=== PATIENT | female | born 1945 | race Caucasian/White ===

== ENCOUNTER 2021-05-24 14:34 | Emergency (ER) | payer OTHER, MEDICARE ==
[2021-05-24 15:01] VITALS: BMI 27.6
[2021-05-24 18:47] VITALS: BP 149/57; PULSE 58; TEMP 98.1
== END 2021-05-24 18:47 | disposition home or self-care (01) ==
LOC: JER 14:34
DX: S09.90XA Unspecified injury of head, initial encounter (principal)
CPT/HCPCS: 70450-TC; 99284-25

== ENCOUNTER 2021-12-08 11:27 | Observation (INO) | payer OTHER, MEDICARE ==
[2021-12-08 11:43] VITALS: BMI 28.3
[2021-12-08] MEDS ORDERED: SODIUM CHLORIDE 0.9% 500 ML INFUS.BAG IV ONE (13:49)
[2021-12-08 14:46] LABS: BASO % 1.2 % (0-2.0); EOS % 3.5 % (0-4.5); HEMATOCRIT 37.3 % (32.4-45.2); HEMOGLOBIN 12.6 GM/dL (10.7-15.3); LYMPH % 25.6 % (8-40); MCH 30.5 pg (25.7-33.7); MCHC 33.7 g/dl (32.0-36.0); MEAN CELL VOLUME 90.5 fl (80-96); MEAN PLT VOLUME 7.3 fl (7.5-11.1); MONO % 12.3 % (3.8-10.2); NEUT % 57.4 % (42.8-82.8); PLATELET COUNT 386 10^3/uL (134-434); RBC 4.12 M/mm3 (3.60-5.2); RDW 13.3 % (11.6-15.6); WHITE BLOOD COUNT 9.1 K/mm3 (4.0-10.0)
[2021-12-08 14:57] LABS: CHLORIDE 106 mmol/L (98-107); SODIUM 143 mmol/L (136-145)
[2021-12-08] MEDS ORDERED: diazePAM CARPU-JECT 10 MG/2 ML DISP.SYRIN IVPUSH ONE (14:57)
[2021-12-08] MEDS ORDERED: LORATADINE 10 MG TABLET PO ONE (14:57)
[2021-12-08 14:59] LABS: CALCIUM 9.6 mg/dL (8.5-10.1)
[2021-12-08 15:00] LABS: ALBUMIN 4.3 g/dl (3.4-5.0); ANION GAP 8 MMOL/L (8-16); BLOOD UREA NITROGEN 14.6 mg/dL (7-18); CO2 29 mmol/L (21-32); GLUCOSE,RANDOM 83 mg/dL (74-106)
[2021-12-08 15:01] LABS: INR 1.09 (0.83-1.09); PROTHROMBIN TIME (PATIENT) 12.6 SEC (9.7-13.0)
[2021-12-08 15:02] LABS: ACTIVATED PTT 23.9 SECONDS (25.2-36.5)
[2021-12-08 15:03] LABS: CREATININE 0.6 mg/dL (0.55-1.3); SGOT/AST 20 U/L (15-37); SGPT/ALT 26 U/L (13-61)
[2021-12-08 15:04] LABS: BILIRUBIN,TOTAL 0.3 mg/dL (0.2-1)
[2021-12-08 15:05] LABS: ALK PHOS 83 U/L (45-117); TOT PROT 7.2 g/dl (6.4-8.2)
[2021-12-08] MEDS ORDERED: LORATADINE 10 MG TABLET ONE ×2 (15:20→15:21)
[2021-12-08] MEDS ORDERED: diazePAM CARPU-JECT 10 MG/2 ML DISP.SYRIN ONE (15:20)
[2021-12-08 15:21] LABS: EPI CELLS 17 /uL (0-25.1); HYALINE CASTS 0 /uL (0-3.1); PH,URINE 5.5 (5.0-8.0); URINE APPEARANCE CLEAR; URINE BACTERIA 224 /uL (0-1359); URINE BILIRUBIN NEGATIVE (NEGATIVE); URINE COLOR YELLOW; URINE GLUCOSE (UA) NEGATIVE (NEGATIVE); URINE KETONE NEGATIVE (NEGATIVE); URINE LEUK ESTERASE 1+ (NEGATIVE); URINE NITRITE NEGATIVE (NEGATIVE); URINE PROTEIN NEGATIVE (NEGATIVE); URINE RBC 5 /uL (0-23.9); URINE UROBILINOGEN 0.2 mg/dL (0.2-1.0); URINE WBC 57 /uL (0-25.8)
[2021-12-08] MEDS ORDERED: ACETAMINOPHEN 325 MG TABLET (FP) PO PRN (22:01)
[2021-12-08] MEDS ORDERED: POLYETHYLENE GLYCOL 3350 119 GM BTL PO PRN (22:01)
[2021-12-08] MEDS ORDERED: POLYETHYLENE GLYCOL (HEALTHYLAX) 3350 17 GM PACKET PO PRN (22:13)
[2021-12-08] MEDS ORDERED: ALBUTEROL SO4 HFA INHALER IH PRN (22:38)
[2021-12-09 07:45] LABS: EOS % 3.8 % (0-4.5); HEMATOCRIT 33.2 % (32.4-45.2); HEMOGLOBIN 11.6 GM/dL (10.7-15.3); LYMPH % 17.2 % (8-40); MCH 31.4 pg (25.7-33.7); MEAN CELL VOLUME 89.6 fl (80-96); MEAN PLT VOLUME 7.4 fl (7.5-11.1); PLATELET COUNT 339 10^3/uL (134-434); WHITE BLOOD COUNT 7.9 K/mm3 (4.0-10.0)
[2021-12-09 07:56] LABS: CHLORIDE 110 mmol/L (98-107); SODIUM 144 mmol/L (136-145)
[2021-12-09 08:12] LABS: ANION GAP 8 MMOL/L (8-16); BLOOD UREA NITROGEN 9.2 mg/dL (7-18); CALCIUM 9.2 mg/dL (8.5-10.1); CO2 26 mmol/L (21-32)
[2021-12-09 08:13] LABS: GLUCOSE,RANDOM 110 mg/dL (74-106); MAGNESIUM 2.4 mg/dL (1.8-2.4)
[2021-12-09 08:16] LABS: CREATININE 0.6 mg/dL (0.55-1.3)
[2021-12-09] MEDS ORDERED: QUINAPRIL HCL 20 MG TABLET PO SCH (10:00)
[2021-12-09] MEDS ORDERED: ASPIRIN 81 MG CHEWABLE TABLETS ONE (10:12)
[2021-12-09] MEDS: ASPIRIN 81 MG CHEWABLE TABLETS PO SCH (10:16)
[2021-12-09] MEDS: ENOXAPARIN NA (PORCINE) 40 MG/0.4 ML DISP.SYRIN SQ SCH (11:21)
[2021-12-09] MEDS ORDERED: PANTOPRAZOLE 40 MG TABLET ONE (13:31)
[2021-12-09] MEDS: PANTOPRAZOLE 40 MG TABLET PO SCH (13:35)
[2021-12-09] MEDS ORDERED: ATORVASTATIN CA 20 MG TABLET (FP) ONE (21:36)
[2021-12-09] MEDS ORDERED: ATORVASTATIN CA 20 MG TABLET (FP) PO SCH (22:00)
[2021-12-09] MEDS: QUINAPRIL HCL 20 MG TABLET PO SCH (22:48)
[2021-12-10 08:17] LABS: BASO % 1.4 % (0-2.0); EOS % 5.2 % (0-4.5); HEMOGLOBIN 11.9 GM/dL (10.7-15.3); LYMPH % 20.3 % (8-40); MCH 30.6 pg (25.7-33.7); MCHC 33.9 g/dl (32.0-36.0); MEAN CELL VOLUME 90.1 fl (80-96); MEAN PLT VOLUME 7.4 fl (7.5-11.1); MONO % 11.1 % (3.8-10.2); PLATELET COUNT 360 10^3/uL (134-434); RBC 3.89 M/mm3 (3.60-5.2); RDW 13.2 % (11.6-15.6); WHITE BLOOD COUNT 7.4 K/mm3 (4.0-10.0)
[2021-12-10 08:50] LABS: ALBUMIN 3.7 g/dl (3.4-5.0); BLOOD UREA NITROGEN 13.4 mg/dL (7-18); CALCIUM 9.6 mg/dL (8.5-10.1); MAGNESIUM 2.4 mg/dL (1.8-2.4)
[2021-12-10 08:53] LABS: CREATININE 0.6 mg/dL (0.55-1.3); PHOSPHOROUS 4.1 mg/dL (2.5-4.9)
[2021-12-10 08:54] LABS: TOT PROT 6.6 g/dl (6.4-8.2)
[2021-12-10 08:55] LABS: BILIRUBIN,TOTAL 0.7 mg/dL (0.2-1)
[2021-12-10] MEDS ORDERED: ASPIRIN 81 MG CHEWABLE TABLETS ONE (10:05)
[2021-12-10] MEDS ORDERED: PANTOPRAZOLE 40 MG TABLET ONE (10:05)
[2021-12-10] MEDS ORDERED: ENOXAPARIN NA (PORCINE) 40 MG/0.4 ML DISP.SYRIN SQ ONE (10:06)
[2021-12-10] MEDS: ASPIRIN 81 MG CHEWABLE TABLETS PO SCH (10:16)
[2021-12-10] MEDS: PANTOPRAZOLE 40 MG TABLET PO SCH (10:16)
[2021-12-10] MEDS: QUINAPRIL HCL 20 MG TABLET PO SCH (10:16)
[2021-12-10] MEDS: ENOXAPARIN NA (PORCINE) 40 MG/0.4 ML DISP.SYRIN SQ SCH (10:16)
[2021-12-10 12:20] VITALS: BP 116/55; PULSE 64; TEMP 98.3
== END 2021-12-10 11:47 | disposition home or self-care (01) ==
LOC: JER 11:27 → JERBED 20:20 → INTOOBSV 20:20 → UNDOADMOB 20:20 → JERBED 12-09 13:53
PROVIDERS: ADMIT Hospitalist; ATTEND Internal Medicine
PROC: 3E033GC Introduction of Other Therapeutic Substance into Peripheral Vein, Percutaneous Approach (ICD-10-PCS; principal; 2021-12-09)
PROC: 3E023GC Introduction of Other Therapeutic Substance into Muscle, Percutaneous Approach (ICD-10-PCS; 2021-12-09)
PROC: 3E0337Z Introduction of Electrolytic and Water Balance Substance into Peripheral Vein, Percutaneous Approach (ICD-10-PCS; 2021-12-09)
DX: U07.1 COVID-19 (principal); I10 Essential (primary) hypertension; E78.5 Hyperlipidemia, unspecified; E11.9 Type 2 diabetes mellitus without complications; M35.9 Systemic involvement of connective tissue, unspecified; R79.89 Other specified abnormal findings of blood chemistry; I45.10 Unspecified right bundle-branch block; Z91.81 History of falling; R29.6 Repeated falls; R42 Dizziness and giddiness; R26.81 Unsteadiness on feet; Z88.8 Allergy status to other drugs, medicaments and biological substances; Z88.5 Allergy status to narcotic agent
CPT/HCPCS: 36415; 70450-TC; 71045-TC-FY; 80048; 80053; 81003; 82550; 83735; 84100; 84443; 84484; 85025; 85379; 85610; 85730; 86140; 87804; 93005; 93010; 96372; 96374; 99285-25; C9803; G0378; U0003; U0005

== ENCOUNTER 2024-02-09 11:31 | Inpatient (IN) | payer OTHER, MEDICARE ==
[2024-02-09 11:41] VITALS: BMI 26.6
[2024-02-09 13:33] LABS: INR 1.09 (0.83-1.09); PROTHROMBIN TIME (PATIENT) 12.6 SEC (9.7-13.0)
[2024-02-09 13:34] LABS: EOS % 2.3 % (0-4.5); HEMATOCRIT 37.2 % (32.4-45.2); HEMOGLOBIN 12.5 GM/dL (10.7-15.3); LYMPH % 16.5 % (8-40); MCH 28.7 pg (25.7-33.7); MCHC 33.5 g/dl (32.0-36.0); MEAN CELL VOLUME 85.5 fl (80-96); MEAN PLT VOLUME 7.4 fl (7.5-11.1); MONO % 11.4 % (3.8-10.2); NEUT % 68.8 % (42.8-82.8); PLATELET COUNT 399 10^3/uL (134-434); RBC 4.35 M/mm3 (3.60-5.2); RDW 15.4 % (11.6-15.6); WHITE BLOOD COUNT 9.3 K/mm3 (4.0-10.0)
[2024-02-09 13:53] LABS: POTASSIUM 3.8 mmol/L (3.5-5.1)
[2024-02-09 13:56] LABS: ALBUMIN 3.9 g/dl (3.4-5.0); BLOOD UREA NITROGEN 12.6 mg/dL (7-18); CALCIUM 9.8 mg/dL (8.5-10.1)
[2024-02-09 14:00] LABS: CREATININE 0.7 mg/dL (0.55-1.3); TOT PROT 7.2 g/dl (6.4-8.2)
[2024-02-09 14:02] LABS: BILIRUBIN,TOTAL 0.7 mg/dL (0.2-1)
[2024-02-09] MEDS ORDERED: MECLIZINE HCL 25 MG TABLET (FP) ONE ×2 (14:37→18:13)
[2024-02-09] MEDS: MECLIZINE HCL 25 MG TABLET (FP) PO ONE ×3 (14:41→18:18)
[2024-02-09] MEDS ORDERED: ALBUTEROL SO4 HFA INHALER IH PRN (22:20)
[2024-02-10 07:18] LABS: EOS % 3.8 % (0-4.5); HEMATOCRIT 36.5 % (32.4-45.2); HEMOGLOBIN 12.2 GM/dL (10.7-15.3); LYMPH % 17.5 % (8-40); MCH 28.8 pg (25.7-33.7); MCHC 33.4 g/dl (32.0-36.0); MEAN CELL VOLUME 86.3 fl (80-96); MEAN PLT VOLUME 7.7 fl (7.5-11.1); MONO % 13.6 % (3.8-10.2); NEUT % 64.1 % (42.8-82.8); PLATELET COUNT 372 10^3/uL (134-434); RBC 4.23 M/mm3 (3.60-5.2); RDW 15.3 % (11.6-15.6); WHITE BLOOD COUNT 9.1 K/mm3 (4.0-10.0)
[2024-02-10 07:43] LABS: CALCIUM 9.3 mg/dL (8.5-10.1)
[2024-02-10 07:45] LABS: BLOOD UREA NITROGEN 10.6 mg/dL (7-18)
[2024-02-10 07:48] LABS: CREATININE 0.6 mg/dL (0.55-1.3)
[2024-02-10] MEDS: ASPIRIN 81 MG CHEWABLE TABLETS PO SCH (09:31)
[2024-02-10] MEDS: PANTOPRAZOLE 40 MG TABLET PO SCH (09:31)
[2024-02-10 12:29] LABS: CHOLESTEROL 217 mg/dL (50-200)
[2024-02-10 12:31] LABS: LDL CHOLESTEROL (ONLY SJRH) 110 mg/dL (5-100)
[2024-02-10 12:33] LABS: HDL CHOLESTEROL 86 mg/dL (40-60)
[2024-02-10] MEDS: ATORVASTATIN CA 20 MG TABLET (FP) PO SCH (22:22)
[2024-02-10] MEDS: METOPROLOL TARTRATE 25 MG TABLET (FP) PO SCH (22:22)
[2024-02-11] MEDS ORDERED: IOHEXOL (OMNIPAQUE PO) 12 MG/ML - 500 ML BOTTLE PO ONE (07:59)
[2024-02-11] MEDS ORDERED: QUINAPRIL HCL 20 MG TABLET PO SCH (10:00)
[2024-02-11] MEDS: ESCITALOPRAM OXALATE 10 MG TABLET PO SCH (10:17)
[2024-02-11] MEDS: LISINOPRIL 20 MG TABLET PO SCH (10:17)
[2024-02-11] MEDS: DONEPEZIL HCL 5 MG TABLET (FP) PO SCH (22:59)
[2024-02-12 10:33] LABS: URINE APPEARANCE HAZY; URINE BILIRUBIN NEGATIVE (NEGATIVE); URINE COLOR YELLOW; URINE GLUCOSE (UA) NEGATIVE (NEGATIVE); URINE KETONE NEGATIVE (NEGATIVE); URINE NITRITE NEGATIVE (NEGATIVE); URINE PROTEIN TRACE (NEGATIVE)
[2024-02-12 10:34] LABS: EPI CELLS 20.3 /uL (0-25.1); URINE BACTERIA 33.9 /uL (0-1359); URINE LEUK ESTERASE NEGATIVE (NEGATIVE); URINE RBC 30.2 /uL (0-23.9); URINE WBC 12.8 /uL (0-25.8)
[2024-02-14 08:14] LABS: POTASSIUM 3.8 mmol/L (3.5-5.1)
[2024-02-14 08:23] LABS: CALCIUM 9.5 mg/dL (8.5-10.1)
[2024-02-14 08:24] LABS: ALBUMIN 3.6 g/dl (3.4-5.0); BLOOD UREA NITROGEN 14.3 mg/dL (7-18)
[2024-02-14 08:27] LABS: CREATININE 0.7 mg/dL (0.55-1.3)
[2024-02-14 08:28] LABS: BILIRUBIN,TOTAL 0.7 mg/dL (0.2-1)
[2024-02-14 08:29] LABS: TOT PROT 6.6 g/dl (6.4-8.2)
[2024-02-14 08:39] LABS: HEMATOCRIT 35.3 % (32.4-45.2); HEMOGLOBIN 12.1 GM/dL (10.7-15.3); MCH 29.2 pg (25.7-33.7); MCHC 34.1 g/dl (32.0-36.0); MEAN CELL VOLUME 85.8 fl (80-96); MEAN PLT VOLUME 8.1 fl (7.5-11.1); PLATELET COUNT 355 10^3/uL (134-434); RBC 4.12 M/mm3 (3.60-5.2); RDW 14.6 % (11.6-15.6); WHITE BLOOD COUNT 9.8 K/mm3 (4.0-10.0)
[2024-02-14 14:09] VITALS: BP 125/53; PULSE 69; RESP 16; TEMP 97.9
== END 2024-02-14 14:16 | DRG 149 ==
LOC: JER 11:31 → JERBED 19:37 → J4W 02-10 04:24 → OBSVTOIN 02-11 10:06
PROVIDERS: ADMIT Internal Medicine; ATTEND Internal Medicine
DX: R42 Dizziness and giddiness (principal); K92.1 Melena; R00.2 Palpitations; R26.81 Unsteadiness on feet; F03.90 Unspecified dementia, unspecified severity, without behavioral disturbance, psychotic disturbance, mood disturbance, and anxiety; I10 Essential (primary) hypertension
CPT/HCPCS: 36415; 70450-TC; 70551-TC; 71045-TC-FY; 73502-TC-RT-FY; 74177-TC; 80048; 80053; 80061; 81003; 81401; 82272; 82550; 82553; 82607; 82728; 82962; 83540; 83550; 83735; 84443; 84484; 85025; 85027; 85610; 86780; 87086; 87635; 93005; 93010; 97116-GP; 97162-GP; 99285-25; G0378; Q9967